=== PATIENT | male | born 1975 | race Caucasian/White ===

== ENCOUNTER 2018-05-01 11:37 | Day surgery (SDC) | payer BC ==
[~2018-05-01] VITALS: Ht 167.6 cm; Wt 83.1 kg
[~2018-05-01 11:37] MED LIST: CEPH500 PO; CITA20 PO; CITALOPRAM; HYDACE5 PO
== END 2018-05-01 13:50 | disposition home or self-care (01) ==
LOC: ORSCSDS 11:37
PROVIDERS: Orthopaedic Surgery
PROC: 01N54ZZ Release Median Nerve, Percutaneous Endoscopic Approach (ICD-10-PCS; principal; 2018-05-01 13:00)
DX: G56.02 Carpal tunnel syndrome, left upper limb (principal); F41.9 Anxiety disorder, unspecified; Z79.899 Other long term (current) drug therapy
CPT/HCPCS: J0171; J0690; J2250; J3010; J7120